=== PATIENT | female | born 1975 | race African-American/Black ===

== ENCOUNTER 2017-09-13 15:16 | Emergency (ER) | payer MEDICARE, OTHER ==
[~2017-09-13] VITALS: Ht 162.6 cm; Wt 63.5 kg
[2017-09-13] MEDS ORDERED: KEPPRA500 M4 ORAL (15:26)
[2017-09-13 15:37] VITALS: BP 106/65
[2017-09-13 15:45] LABS: EOSINOPHILS % (AUTO) 0.7 % (0.0-3.0); HEMOGLOBIN 12.6 G/DL (12.0-16.0); LYMPHOCYTES % (AUTO) 33.5 % (20.0-45.0); MEAN CORPUSCULAR VOLUME 82 FL (80-99); MONOCYTES % (AUTO) 6.6 % (1.0-10.0); NEUTROPHILS % (AUTO) 58.2 % (45.0-75.0); PLATELET COUNT 148 K/UL (150-450); RED BLOOD COUNT 4.49 M/UL (4.20-5.40); RED CELL DISTRIBUTION WIDTH 11.2 % (11.6-14.8); WHITE BLOOD COUNT 7.8 K/UL (4.8-10.8)
--- NOTE | 2017-09-13 15:52 | Diagnostic Imaging Report ---
Indication: Altered mental status, chest pain Technique: XRAY Chest 1v Comparison: None FINDINGS/IMPRESSION: Limited exam with suboptimal positioning. Heart appears mildly enlarged. There is no definite focal airspace consolidation, pleural effusion or pneumothorax. No acute osseous abnormality appreciated.
[2017-09-13 15:56] LABS: ANION GAP 10 mmol/L (5-15); BLOOD UREA NITROGEN 14 mg/dL (7-18); CALCIUM 8.6 MG/DL (8.5-10.1); CARBON DIOXIDE 25 MMOL/L (21-32); CHLORIDE 106 MMOL/L (98-107); CREATININE 0.7 MG/DL (0.55-1.30); POTASSIUM 3.4 MMOL/L (3.5-5.1); SODIUM 141 MMOL/L (136-145)
[2017-09-13 16:01] LABS: ALANINE AMINOTRANSFERASE 16 U/L (12-78); ALBUMIN 4.1 G/DL (3.4-5.0); ALBUMIN/GLOBULIN RATIO 1.6 (1.0-2.7); ALKALINE PHOSPHATASE 64 U/L (46-116); ASPARTATE AMINO TRANSFERASE 15 U/L (15-37); BILIRUBIN,TOTAL 0.5 MG/DL (0.2-1.0); CREATINE KINASE 159 U/L (26-308)
--- NOTE | 2017-09-13 16:05 | Emergency Room Report ---
History of Present Illness General Chief Complaint: Seizure Source: Patient Present Illness HPI 42-year-old female with a history of seizures p/w seizure. Per EMS, Patient had witnessed seizure, generalized tonic clonic, more then 10 minutes. They state that they gave her 5 mg of Versed and that she was conscious but then became drowsy again after the Versed Antiseizure medication includes Keppra No recent fever, chills, chest pain, sob, cough, n/v/d, abdominal pain. Denies hx of alcohol abuse or any drug abuse. Currently denying CERVANTES, neck pain, blurry vision, motor or sensory weakness. pt states she has been compliant with meds. last sz 2 mos ago Allergies: Coded Allergies: No Known Allergies (Unverified , 09/13/17) Patient History Past Medical History: see triage record Past Surgical History: none Pertinent Family History: none Last Menstrual Period: unknown Reviewed Nursing Documentation: PMH: Agreed; PSxH: Agreed Nursing Documentation-PMH Past Medical History: No History, Except For Hx Seizures: Yes Review of Systems All Other Systems: negative except mentioned in HPI Physical Exam Vital Signs Date Time Temp Pulse Resp B/P (MAP) Pulse Ox O2 Delivery O2 Flow Rate FiO2 09/13/17 15:10 99.5 74 18 106/65 98 Room Air 99.5 Medical Decision Making Diagnostic Impression: Primary Impression: Seizure disorder ER Course 42-year-old female with p/w seizure DDX: Primary seizure, triggered by infection UTI/PNA vs. dehydration vs. medication non compliance Electrolyte disturbance: hypoglycemia vs. hyponatremia vs. hypocalcemia vs. hypomagnesemia Cardiac: Arrythmia/acs Intracranial pathology: intracranial bleed, stroke Tox Plan: BGM EKG, UCG Labs, seizure medication levels, tox labs Consider CT Ativan PRN / anti seizure meds ER course: No further seizures in ED Has been stable during ED stay. AOx4, no neurological signs or symptoms given keppra Patient is feeling much better. She has remained awake alert she is conversing with her daughters at bedside. She feels much better. She states that she does not really like her neurologist but she will call her PCP for another referral Disposition: Patient will be discharged to home. Patient instructed to be compliant with anti seizure medications Patient is to follow up with their primary care doctor in 5 days and neurologist within 1 week. Strict return precautions discussed such as severe headache, fever, chills, neck pain, prolonged or increased frequency of seizures. Patient verbalized understanding and agrees with plan. EKG Diagnostic Results EP Interpretation: Yes Rate: normal Rhythm: NSR ST Segments: T-wave inversions lead 3, V3 ASA given to patient: No Rhythm Strip EP Interpretation: Yes Rate: 70 Rhythm: NSR, no PVCs, no ectopy Chest X-ray CXR: Ordered: Yes 1 view Indication: Altered mental status EP interpretation: Yes Interpretation: No consolidation, no effusion, no PTX, no acute cardiopulmonary disease Impression: No acute disease Electronically signed by Marin Stanton MD Laboratory Tests Test 09/13/17 15:31 09/13/17 16:03 White Blood Count 7.8 K/UL (4.8-10.8) Red Blood Count 4.49 M/UL (4.20-5.40) Hemoglobin 12.6 G/DL (12.0-16.0) Hematocrit 37.0 % (37.0-47.0) Mean Corpuscular Volume 82 FL (80-99) Mean Corpuscular Hemoglobin 28.0 PG (27.0-31.0) Mean Corpuscular Hemoglobin Concent 34.0 G/DL (32.0-36.0) Red Cell Distribution Width 11.2 % (11.6-14.8) L Platelet Count 148 K/UL (150-450) L Mean Platelet Volume 11.5 FL (6.5-10.1) H Neutrophils (%) (Auto) 58.2 % (45.0-75.0) Lymphocytes (%) (Auto) 33.5 % (20.0-45.0) Monocytes (%) (Auto) 6.6 % (1.0-10.0) Eosinophils (%) (Auto) 0.7 % (0.0-3.0) Basophils (%) (Auto) 1.0 % (0.0-2.0) Sodium Level 141 MMOL/L (136-145) Potassium Level 3.4 MMOL/L (3.5-5.1) L Chloride Level 106 MMOL/L (98-107) Carbon Dioxide Level 25 MMOL/L (21-32) Anion Gap 10 mmol/L (5-15) Blood Urea Nitrogen 14 mg/dL (7-18) Creatinine 0.7 MG/DL (0.55-1.30) Estimate Glomerular Filtration Rate > 60 mL/min (>60) Glucose Level 87 MG/DL (74-106) Calcium Level 8.6 MG/DL (8.5-10.1) Total Bilirubin 0.5 MG/DL (0.2-1.0) Aspartate Amino Transferase (AST) 15 U/L (15-37) Alanine Aminotransferase (ALT) 16 U/L (12-78) Alkaline Phosphatase 64 U/L (46-116) Total Creatine Kinase 159 U/L (26-308) Troponin I 0.000 ng/mL (0.000-0.056) Total Protein 6.7 G/DL (6.4-8.2) Albumin 4.1 G/DL (3.4-5.0) Globulin 2.6 g/dL Albumin/Globulin Ratio 1.6 (1.0-2.7) Salicylates Level 3.1 ug/mL (2.8-20) Acetaminophen Level < 2 MCG/ML (10-30) L Phenytoin (Dilantin) Level < 0.5 ug/mL (10-20) L Serum Alcohol < 3 mg/dL Urine Color Yellow Urine Appearance Clear Urine pH 6 (4.5-8.0) Urine Specific [place] 1.015 (1.005-1.035) Urine Protein Negative (NEGATIVE) Urine Glucose (UA) Negative (NEGATIVE) Urine Ketones Negative (NEGATIVE) Urine Occult Blood 2+ (NEGATIVE) H Urine Nitrite Negative (NEGATIVE) Urine Bilirubin Negative (NEGATIVE) Urine Urobilinogen 1 MG/DL (0.0-1.0) H Urine Leukocyte Esterase 1+ (NEGATIVE) H Urine RBC 5-10 /HPF (0 - 2) H Urine WBC 2-4 /HPF (0 - 2) Urine Squamous Epithelial Cells Few /LPF (NONE/OCC) Urine Bacteria Few /HPF (NONE) Urine HCG, Qualitative Negative (NEGATIVE) Urine Opiates Screen Negative (NEGATIVE) Urine Barbiturates Screen Negative (NEGATIVE) Phencyclidine (PCP) Screen Negative (NEGATIVE) Urine Amphetamines Screen Negative (NEGATIVE) Urine Benzodiazepines Screen Positive (NEGATIVE) H Urine Cocaine Screen Negative (NEGATIVE) Urine Marijuana (THC) Screen Negative (NEGATIVE) CT/MRI/US Diagnostic Results CT/MRI/US Diagnostic Results : Imaging Test Ordered: CT HEAD Impression IMPRESSION: No evidence of acute intracranial hemorrhage, mass effect or cortical edema. MRI may be obtained for more sensitive evaluation as clinically indicated. PER RADIOLOGY Last Vital Signs Date Time Temp Pulse Resp B/P (MAP) Pulse Ox O2 Delivery O2 Flow Rate FiO2 09/13/17 15:37 74 18 09/13/17 15:37 99.5 106/65 98 Room Air 99.5 Disposition: HOME, SELF-CARE Condition: Improved Marin Stanton M.D. Sep 13, 2017 16:05
--- NOTE | 2017-09-13 16:09 | Diagnostic Imaging Report ---
Indication: Altered mental status, seizure Technique: Continuous helical CT scanning of the head was performed utilizing automated exposure control without intravenous contrast material. Axial and coronal reconstructions were obtained. Comparison: None CT dose: Total DLP 1354.96 mGycm; CTDI vol 70.38 mGy Findings: There is no acute intracranial hemorrhage, mass effect or cortical edema. The ventricles, cisterns and sulci are within normal limits for age. There is hyperpneumatization of the right mastoid air cells, without definite mastoid effusion. Paranasal sinuses are clear.. No focal lesions of the bony calvarium or soft tissues of the scalp are seen. IMPRESSION: No evidence of acute intracranial hemorrhage, mass effect or cortical edema. MRI may be obtained for more sensitive evaluation as clinically indicated. The CT scanner at [facility] is accredited by the [employer] and the scans are performed using protocols designed to limit radiation exposure to as low as reasonably achievable to attain images of sufficient resolution adequate for diagnostic evaluation.
[2017-09-13 16:14] LABS: APPEARANCE,URINE CLEAR; BILIRUBIN, URINE NEGATIVE (NEGATIVE); GLUCOSE, URINE (UA) NEGATIVE (NEGATIVE); KETONES,URINE NEGATIVE (NEGATIVE); LEUKOCYTE ESTERASE ,URINE 1+ (NEGATIVE); NITRITE,URINE NEGATIVE (NEGATIVE); PH,URINE 6 (4.5-8.0); PROTEIN,URINE NEGATIVE (NEGATIVE); UROBILINOGEN,URINE 1 MG/DL (0.0-1.0)
[2017-09-13] MEDS ORDERED: levETIRAcetam 1,500 MG in D5W 95 ML IVPB ONE (16:15)
[2017-09-13 16:21] LABS: COLOR,URINE YELLOW
[2017-09-13] MEDS ORDERED: Morphine Sulfate 4mg/ml Inj ONE (18:50)
[2017-09-13] MEDS ORDERED: CITALOPRAM HBR40 M1 ORAL (19:19)
[2017-09-13] MEDS ORDERED: SEROQUEL100 MG ORAL (19:19)
[2017-09-13] MEDS ORDERED: GABAPENTIN800 MG ORAL (19:19)
[2017-09-13] MEDS ORDERED: NAPROXEN500 M2 ORAL (19:19)
[2017-09-13] MEDS ORDERED: DEPAKOTE ER500 MG ORAL (19:19)
[2017-09-13 20:00] VITALS: BP 106/65
== END 2017-09-13 20:00 | disposition home or self-care (01) ==
LOC: EDBD 15:16 → EMR 16:53
DX: G40.909 Epilepsy, unspecified, not intractable, without status epilepticus (principal)
CPT/HCPCS: 36415; 70450; 71045; 80053; 80185; 80307; 81003; 81025; 82550; 84484; 85025; 99284; G0480; J1953; J2270; 80329

== ENCOUNTER 2017-10-12 19:31 | Emergency (ER) | payer MEDICARE, OTHER ==
[~2017-10-12] VITALS: Ht 170.2 cm; Wt 86.2 kg
[~2017-10-12 19:31] MED LIST: CITALOPRAM HBR40 M1 ORAL; DEPAKOTE ER500 MG ORAL; GABAPENTIN800 MG ORAL; KEPPRA500 M4 ORAL; NAPROXEN500 M2 ORAL; SEROQUEL100 MG ORAL
[2017-10-12 20:15] VITALS: BP 106/68
[2017-10-12 20:23] LABS: BASOPHILS % (AUTO) 1.7 % (0.0-2.0); EOSINOPHILS % (AUTO) 1.2 % (0.0-3.0); HEMATOCRIT 37.5 % (37.0-47.0); HEMOGLOBIN 12.7 G/DL (12.0-16.0); LYMPHOCYTES % (AUTO) 34.9 % (20.0-45.0); MEAN CORPUSCULAR VOLUME 84 FL (80-99); MONOCYTES % (AUTO) 5.4 % (1.0-10.0); NEUTROPHILS % (AUTO) 56.9 % (45.0-75.0); PLATELET COUNT 192 K/UL (150-450); RED BLOOD COUNT 4.49 M/UL (4.20-5.40); RED CELL DISTRIBUTION WIDTH 11.9 % (11.6-14.8); WHITE BLOOD COUNT 11.8 K/UL (4.8-10.8)
[2017-10-12 20:44] LABS: ANION GAP 10 mmol/L (5-15); BLOOD UREA NITROGEN 23 mg/dL (7-18); CALCIUM 8.8 MG/DL (8.5-10.1); CARBON DIOXIDE 24 MMOL/L (21-32); CHLORIDE 110 MMOL/L (98-107); CREATININE 0.8 MG/DL (0.55-1.30); POTASSIUM 3.7 MMOL/L (3.5-5.1); SODIUM 144 MMOL/L (136-145)
[2017-10-12 20:49] LABS: ALANINE AMINOTRANSFERASE 13 U/L (12-78); ALBUMIN 3.9 G/DL (3.4-5.0); ALBUMIN/GLOBULIN RATIO 1.3 (1.0-2.7); ALKALINE PHOSPHATASE 72 U/L (46-116); ASPARTATE AMINO TRANSFERASE 18 U/L (15-37); BILIRUBIN,TOTAL 0.2 MG/DL (0.2-1.0); CREATINE KINASE 182 U/L (26-308)
--- NOTE | 2017-10-12 22:20 | Emergency Room Report ---
History of Present Illness General Chief Complaint: Seizure Source: EMS Present Illness HPI Patient presented post seizure. Paramedics felt depressed mentation. Accucheck 104. Reported improvement with O2 though normal O2 sat. Family deny trauma. Missed doses of Keppra. Has been seen here in past for same. Apparently has bipolar disorder also. No other history available from patient although eyes open and follows commands. Allergies: Coded Allergies: No Known Allergies (Unverified , 09/13/17) Patient History Limited by: medical condition Past Medical History: see triage record, old chart reviewed Social History: Denies: alcohol use, drug use Social History Narrative with children Last Menstrual Period: unk Reviewed Nursing Documentation: PMH: Agreed; PSxH: Agreed Nursing Documentation-PMH Past Medical History: No History, Except For Hx Seizures: Yes Review of Systems All Other Systems: limited Physical Exam Vital Signs Date Time Temp Pulse Resp B/P (MAP) Pulse Ox O2 Delivery O2 Flow Rate FiO2 10/12/17 19:26 99.1 69 16 119/69 97 99.1 10/12/17 19:40 Room Air 98 Sp02 EP Interpretation: reviewed, normal General Appearance: well appearing, no apparent distress, Postictal Head: normocephalic, atraumatic Eyes: bilateral eye normal inspection, bilateral eye PERRL, bilateral eye EOMI ENT: moist mucus membranes - maceration L lateral tongue Neck: supple, no bony tend Respiratory: lungs clear, normal breath sounds Cardiovascular #1: regular rate, rhythm Cardiovascular #2: 2+ radial (R) Gastrointestinal: normal inspection, normal bowel sounds, non tender, no mass, non-distended Genitourinary: no CVA tenderness Musculoskeletal: back normal, normal range of motion Neurologic: alert, maintenance mechanic III-XII nml as tested, motor strength/tone normal, DTRs symmetric, sensory intact, oriented - X1 Psychiatric: depressed affect Skin: normal inspection, warm/dry Medical Decision Making Diagnostic Impression: Primary Impression: Seizure Additional Impressions: Bipolar disorder Qualified Codes: F31.9 - Bipolar disorder, unspecified Noncompliance ER Course Patient presents post seizure with alleged non-compliance. Also has decreased mentation. DDx: post ictal state, poor compliance, breakthrough seizure, electrolyte abnormality amongst others. Based on exam and history, CT of head not indicated. Treatment with IV keppra and evaluation with labs,. EKG and CXR. IV hydration. Cardiac monitoring. CXR to exclude aspiration. Labs with sl leukocytosis, elevated chloride. Late order for depakote level as only determined use when able to get hx. Stopped Seroquel recently, though patient felt this helped more than Celexa. Celexa continues. Continued depakote though recent neurologist did not understand need for this is bipolar disorder and did not RX, but psychiatrist did. No SI or HI. Repeat neuro non-focal and OX3. Patient has meds at home. Patient stable for outpatient observation and treatment. Depakote low. Patient knows compliance poor. Laboratory Tests Test 10/12/17 19:48 10/12/17 21:00 White Blood Count 11.8 K/UL (4.8-10.8) H Red Blood Count 4.49 M/UL (4.20-5.40) Hemoglobin 12.7 G/DL (12.0-16.0) Hematocrit 37.5 % (37.0-47.0) Mean Corpuscular Volume 84 FL (80-99) Mean Corpuscular Hemoglobin 28.4 PG (27.0-31.0) Mean Corpuscular Hemoglobin Concent 34.0 G/DL (32.0-36.0) Red Cell Distribution Width 11.9 % (11.6-14.8) Platelet Count 192 K/UL (150-450) Mean Platelet Volume 10.1 FL (6.5-10.1) Neutrophils (%) (Auto) 56.9 % (45.0-75.0) Lymphocytes (%) (Auto) 34.9 % (20.0-45.0) Monocytes (%) (Auto) 5.4 % (1.0-10.0) Eosinophils (%) (Auto) 1.2 % (0.0-3.0) Basophils (%) (Auto) 1.7 % (0.0-2.0) Sodium Level 144 MMOL/L (136-145) Potassium Level 3.7 MMOL/L (3.5-5.1) Chloride Level 110 MMOL/L (98-107) H Carbon Dioxide Level 24 MMOL/L (21-32) Anion Gap 10 mmol/L (5-15) Blood Urea Nitrogen 23 mg/dL (7-18) H Creatinine 0.8 MG/DL (0.55-1.30) Estimate Glomerular Filtration Rate > 60 mL/min (>60) Glucose Level 99 MG/DL (74-106) Calcium Level 8.8 MG/DL (8.5-10.1) Total Bilirubin 0.2 MG/DL (0.2-1.0) Aspartate Amino Transferase (AST) 18 U/L (15-37) Alanine Aminotransferase (ALT) 13 U/L (12-78) Alkaline Phosphatase 72 U/L (46-116) Total Creatine Kinase 182 U/L (26-308) Total Protein 7.0 G/DL (6.4-8.2) Albumin 3.9 G/DL (3.4-5.0) Globulin 3.1 g/dL Albumin/Globulin Ratio 1.3 (1.0-2.7) Acetaminophen Level < 2 MCG/ML (10-30) L Valproic Acid Level 18 MCG/ML (50-100) L Serum Alcohol < 3 mg/dL Urine Opiates Screen Negative (NEGATIVE) Urine Barbiturates Screen Negative (NEGATIVE) Phencyclidine (PCP) Screen Negative (NEGATIVE) Urine Amphetamines Screen Negative (NEGATIVE) Urine Benzodiazepines Screen Negative (NEGATIVE) Urine Cocaine Screen Negative (NEGATIVE) Urine Marijuana (THC) Screen Negative (NEGATIVE) EKG Diagnostic Results Rate: normal Rhythm: NSR ST Segments: no acute changes Rhythm Strip Diag. Results EP Interpretation: yes Rhythm: NSR, no PVC's, no ectopy Chest X-Ray Diagnostic Results Chest X-Ray Diagnostic Results : Chest X-Ray Ordered: Yes # of Views/Limited/Complete: 1 View Indication: Other EP Interpretation: Yes Interpretation: no consolidation, no effusion, no pneumothorax Impression: No acute disease Electronically Signed by: Senthil Royal MD Last Vital Signs Date Time Temp Pulse Resp B/P (MAP) Pulse Ox O2 Delivery O2 Flow Rate FiO2 10/12/17 22:37 37.49360 65 14 105/78 98 Room Air 98 210.4 Status: improved Disposition: HOME, SELF-CARE Condition: Improved Referrals: [facility],REFERRING (PCP) Senthil Royal M.D. Oct 12, 2017 22:20
[2017-10-12 22:37] VITALS: BP 105/78
--- NOTE | 2017-10-13 10:49 | Diagnostic Imaging Report ---
Indication: Shortness of breath Technique: One view of the chest Comparison: 09/13/2017 Findings: Inspiration is suboptimal, with some crowding of bronchovascular markings. Lungs and pleural spaces are otherwise clear. The heart size is upper limits of normal. Impression: No acute process
--- NOTE | 2017-10-14 13:44 | Cardiology Report ---
APPROVED REPORT EKG Measurement Heart [id number] CT [id number] Normal sinus rhythm Nonspecific T wave abnormality Abnormal ECG
== END 2017-10-12 22:37 | disposition home or self-care (01) ==
LOC: EDBD 19:31 → EMR 20:04
DX: G40.909 Epilepsy, unspecified, not intractable, without status epilepticus (principal); F31.9 Bipolar disorder, unspecified; Z91.14 Patient's other noncompliance with medication regimen
CPT/HCPCS: 36415; 71045; 80053; 80164; 80307; 80329; 82550; 85025; 93005; 96360; 96361; 99284